=== PATIENT | female | born 1945 | race Caucasian/White ===

== ENCOUNTER 2018-10-16 09:56 | Emergency (ER) | payer OTHER ==
[2018-10-16 10:05] VITALS: BMI 21.9
[2018-10-16 10:08] VITALS: TEMP 97.9
--- NOTE | 2018-10-16 10:18 | C.PDOC ---
History Of Present Illness 73 yo female, presents for eval. reports right shoulder pain s/p fall 1.5 weeks ago, painfrom right shoudler going down arm. also reports right leg pain x 2 weeks. rport h/o of surgery did not injury leg with fall. no head injury no loc. Time Seen by Provider: 10/16/18 10:10 Chief Complaint (Nursing): Upper Extremity Problem/Injury Past Medical History Reviewed: Historical Data, Nursing Documentation, Vital Signs Vital Signs: Last Vital Signs Temp 97.9 F 10/16/18 10:04 Pulse 90 10/16/18 10:04 Resp 18 10/16/18 10:04 BP 111/74 10/16/18 10:04 Pulse Ox 97 10/16/18 10:04 - Medical History PMH: Diverticulitis, Osteoporosis Denies: Chronic Kidney Disease - [facility] Procedures ENDOSC POLYPECTOMY OF LG INTEST (03/04/14) ESOPHAGOGASTRODUODENOSCOPY [EGD] W/CLOSED BIOPSY (03/04/14) VACCINATION NEC (07/17/13) Family History: States: Unknown Family Hx - Social History Hx Alcohol Use: No Hx Substance Use: No - Immunization History Hx Tetanus Toxoid Vaccination: Yes Hx Influenza Vaccination: Yes Hx Pneumococcal Vaccination: Yes Review Of Systems Except As Marked, All Systems Reviewed And Found Negative. Musculoskeletal: Positive for: Arm Pain, Leg Pain Physical Exam - Physical Exam Appears: Well, No Acute Distress, Other (mildly anxious apperaing) Skin: Normal Color, Warm, Dry Eye(s): bilateral: Normal Inspection, PERRL, EOMI Nose: Normal Throat: Normal Neck: Normal, Normal ROM, No Midline Cervical Tenderness, Paracervical Tenderness, No Step Off Deformity Cardiovascular: Rhythm Regular Respiratory: Normal Breath Sounds Gastrointestinal/Abdominal: Normal Exam Back: Normal Inspection Extremity: Normal ROM, Tenderness (right shoulder humerus), No Deformity, No Swelling Extremity: Right: Other ((+)straight leg raise test) ED Course And Treatment O2 Sat by Pulse Oximetry: 97 Medical Decision Making Medical Decision Making: right arm pain, r/o fx- suspet cervical radiculopahty no midline ttp stepoffs. also right leg pain r/o dvt, suspect sciatica imaging neg pain impraoved. no cervical midline ttp stepoffs, doubt cervical fracture. advise close outpt fu and return precautions neg dvt study stable for dc. Disposition - Disposition Disposition: HOME/ ROUTINE Disposition Time: 11:00 Condition: STABLE Additional Instructions: return to er with worsening symptoms or concerns. Prescriptions: Naproxen [Naprosyn] 500 mg PO BID PRN #14 tablet PRN Reason: Pain, Mild (1-3) Instructions: Shoulder Sprain, Low Back Pain (DC), Radiculopathy (DC), Garcia Splints (DC) Forms: Slide (Bruneian) - Clinical Impression Clinical Impression: Shoulder sprain, Leg pain
[2018-10-16 11:22] VITALS: BP 108/67; PULSE 69; RESP 16
--- NOTE | 2018-10-16 13:14 | RAD ---
PROCEDURE: Radiographs of the right humerus. HISTORY: Trauma COMPARISON: None. FINDINGS: BONES: Bone alignment is normal. There is no acute displaced fracture or bone destruction. There is diffuse bone demineralization. SOFT TISSUES: Normal. OTHER FINDINGS: None. IMPRESSION: No acute displaced fracture or dislocation.
--- NOTE | 2018-10-16 13:23 | RAD ---
Date of service: 10/16/2018 PROCEDURE: Radiographs of the Right Shoulder HISTORY: Trauma COMPARISON: No prior. FINDINGS: BONES: There is diffuse bone demineralization. There is no acute displaced fracture or bone destruction. Bone alignment is normal. JOINTS: Mild degenerative osteoarthrosis in the acromioclavicular joint. The glenohumeral joint is normal. SOFT TISSUES: Normal. OTHER FINDINGS: None. IMPRESSION: No acute displaced fracture or dislocation.
[2018-10-16 14:49] VITALS: O2SAT 97
--- NOTE | 2018-10-17 07:32 | VASCLAB ---
Date of service: 10/16/2018 PROCEDURE: Right Lower Extremity Venous Duplex Exam. HISTORY: Leg pain PRIORS: None. TECHNIQUE: Right common femoral, femoral, popliteal and posterior tibial, peroneal and great saphenous veins were evaluated. Flow was assessed with color Doppler, compressibility, assessment of phasic flow and augmentation response. Report prepared by RADHA Cochran FINDINGS: RIGHT: 1. Common Femoral Vein: 1.1. Compressibility - Fully compressible: Thrombus - None: Flow - Phasic: Augmentation -Normal: Reflux - None. 2. Femoral Vein: 2.1. Compressibility - Fully compressible: Thrombus - None: Flow - Phasic: Augmentation -Normal: Reflux - None. 3. Popliteal Vein: 3.1. Compressibility - Fully compressible: Thrombus - None: Flow - Phasic: Augmentation -Normal: Reflux - None. 4. Posterior Tibial Vein: 4.1. Compressibility - Fully compressible: Thrombus - None: Flow - Phasic: Augmentation -Normal: Reflux - None. 5. Peroneal Vein: 5.1. Compressibility - Fully compressible: Thrombus - None: Flow - Phasic: Augmentation -Normal: Reflux - None. 6. Great Saphenous Vein: 6.1. Compressibility - Fully compressible: Thrombus -None: Flow - Phasic: Augmentation - Normal: Reflux - None. OTHER FINDINGS: Normal venous flow noted in the LEFT common femoral vein. IMPRESSION: No evidence of deep or superficial vein thrombosis of the right lower extremity with excellent venous flow. Normal valve function noted of the right side.
== END 2018-10-16 11:21 | disposition home or self-care (01) ==
LOC: C.ER 09:56
DX: S43.401A Unspecified sprain of right shoulder joint, initial encounter (principal); W00.0XXA Fall on same level due to ice and snow, initial encounter; M79.604 Pain in right leg; M81.0 Age-related osteoporosis without current pathological fracture
CPT/HCPCS: 73030; 73060; 93971; 96372; 99283; J1885

== ENCOUNTER 2018-10-21 15:53 | Emergency (ER) | payer SELFPAY ==
[2018-10-21 15:53] VITALS: BMI 21.7
[2018-10-21 16:09] VITALS: BP 95/61; PULSE 74; RESP 18; TEMP 98.6; O2SAT 98
--- NOTE | 2018-10-21 16:35 | C.PDOC ---
History Of Present Illness 73 y/o female, who was seen here 10/16/18 for right shoulder pain and discharged home with naproxen and instructed to follow up with orthopedist, returns to ED for worsening pain. Patient has yet to follow up with orthopedist and states pain is 8/10. States that the pain starts at the right shoulder and radiates down to her hand, describes the pain as sharp and on occasion throbbing. Denies any neck involvement, paresthesia, weakness, fever, or chills. Chief Complaint (Nursing): Upper Extremity Problem/Injury History Per: Patient History/Exam Limitations: no limitations Onset/Duration Of Symptoms: Days Current Symptoms Are (Timing): Still Present Past Medical History Reviewed: Historical Data, Nursing Documentation, Vital Signs Vital Signs: Last Vital Signs Temp 98.6 F 10/21/18 16:06 Pulse 74 10/21/18 16:06 Resp 18 10/21/18 16:06 BP 95/61 L 10/21/18 16:06 Pulse Ox 98 10/21/18 16:06 - Medical History PMH: Diverticulitis, Osteoporosis Denies: Chronic Kidney Disease - [facility] Procedures ENDOSC POLYPECTOMY OF LG INTEST (03/04/14) ESOPHAGOGASTRODUODENOSCOPY [EGD] W/CLOSED BIOPSY (03/04/14) VACCINATION NEC (07/17/13) Family History: States: No Known Family Hx - Social History Hx Alcohol Use: No Hx Substance Use: No - Immunization History Hx Tetanus Toxoid Vaccination: Yes Hx Influenza Vaccination: Yes Hx Pneumococcal Vaccination: Yes Review Of Systems Constitutional: Negative for: Fever, Chills Cardiovascular: Negative for: Chest Pain Respiratory: Negative for: Cough, Shortness of Breath Gastrointestinal: Negative for: Nausea, Vomiting, Abdominal Pain, Diarrhea Genitourinary: Negative for: Dysuria Musculoskeletal: Positive for: Shoulder Pain (Right). Negative for: Leg Pain Neurological: Negative for: Weakness, Other (paresthesia) Physical Exam - Physical Exam Appears: Non-toxic, No Acute Distress Skin: Warm, Dry Head: Atraumatic, Normacephalic Eye(s): bilateral: Normal Inspection, PERRL Oral Mucosa: Moist Neck: No Midline Cervical Tenderness, Supple, Other (no meningeal signs) Cardiovascular: Rhythm Regular, No Murmur Respiratory: Normal Breath Sounds, No Rales, No Rhonchi, No Wheezing Gastrointestinal/Abdominal: Soft, No Tenderness Extremity: Capillary Refill (less than 2 seconds), Other (Right shoulder neurovascularly intact, pain with adduction with the shoulder) Extremity: Bilateral: Atraumatic, Normal Color And Temperature Neurological/Psych: Oriented x3, Normal Speech ED Course And Treatment O2 Sat by Pulse Oximetry: 98 (RA) Pulse Ox Interpretation: Normal - Other Rad humerus xray X-Ray: Viewed By Me, Read By Radiologist Interpretation: Accession No. : [id number]. Patient Name / ID : WILLI LAWRENCE / [id number]. Exam Date : 10/21/2018 16:59:03 ( Approved ). Study Comment : Sex / Age : F / 73Y. Creator : Jac Soares MD. Dictator : Jac Soares MD. Escrow Processor : Proof Plate Maker : Jac Soares MD. Approver2 : Report Date : 10/21/2018 21:25:58. My Comment : . Right humerus two views. HISTORY: Fall. Comparison: None available. Findings: No evidence of acute displaced fracture or dislocation. Narrowing at the glenohumeral and acromioclavicular joint spaces. Impression: Negative acute. If pain persists, consider MRI. shoulder xray X-Ray: Viewed By Me, Read By Radiologist Interpretation: Accession No. : [id number]. Patient Name / ID : WILLI LAWRENCE / [id number]. Exam Date : 10/21/2018 16:59:16 ( Approved ). Study Comment : Sex / Age : F / 73Y. Creator : Jac Saores MD. Dictator : Jac Soares MD. Escrow Processor : Proof Plate Maker : Jac Soares MD. Approver2 : Report Date : 10/21/2018 21:36:06. My Comment : . Right shoulder three views. HISTORY: Shoulder pain. Comparison: None. Findings: Moderate narrowing of the glenohumeral joint space. Moderate narrowing of the acromioclavicular joint space with bony hypertrophy. No evidence of acute displaced fracture or dislocation. Impression: Degenerative changes. Negative acute. If pain persists, consider MRI. Medical Decision Making Medical Decision Making: Plan: --Ibuprofen 600 mg PO --Right shoulder XR and Right humerus XR to rule out any new fractures not present on onset Disposition - Disposition Referrals: [facility] [Outside] Disposition: HOME/ ROUTINE Disposition Time: 18:21 Condition: IMPROVED Additional Instructions: Start Motrin as needed for pain Use ice or warm compression on the shoulder joint Continue use of arm sling to rest the joint Over the counter Lidoderm patches or ointment Follow up with Ortho in the Clinic on Tuesday Return to ED if symptoms worsen Prescriptions: Ibuprofen [Motrin] 600 mg PO Q8 #30 tab Instructions: Shoulder Sprain (DC) Forms: Inktd (Russian) Print Language: LUXEMBOURGISH - Clinical Impression Clinical Impression: Shoulder sprain - PA / [employer]ER / Resident Statement MD/DO has reviewed & agrees with the documentation as recorded. - Scribe Statement The provider has reviewed the documentation as recorded by the Scribe Fabiana Quigley All medical record entries made by the Kikeibhéctor were at my direction and personally dictated by me. I have reviewed the chart and agree that the record accurately reflects my personal performance of the history, physical exam, medical decision making, and the department course for this patient. I have also personally directed, reviewed, and agree with the discharge instructions and disposition.
--- NOTE | 2018-10-21 21:29 | RAD ---
Right humerus two views HISTORY: Fall. Comparison: None available Findings: No evidence of acute displaced fracture or dislocation. Narrowing at the glenohumeral and acromioclavicular joint spaces. Impression: Negative acute. If pain persists, consider MRI.
--- NOTE | 2018-10-21 21:39 | RAD ---
Right shoulder three views HISTORY: Shoulder pain. Comparison: None. Findings: Moderate narrowing of the glenohumeral joint space. Moderate narrowing of the acromioclavicular joint space with bony hypertrophy. No evidence of acute displaced fracture or dislocation. Impression: Degenerative changes. Negative acute. If pain persists, consider MRI.
== END 2018-10-21 18:27 | disposition home or self-care (01) ==
LOC: C.ER 15:53
DX: S43.401A Unspecified sprain of right shoulder joint, initial encounter (principal); X58.XXXA Exposure to other specified factors, initial encounter